=== PATIENT | male | born 1985 | race Caucasian/White ===

== ENCOUNTER 2021-08-31 02:38 | Emergency (ER) | payer BC ==
[~2021-08-31] VITALS: Ht 175.3 cm; Wt 74.8 kg
[2021-08-31] MEDS ORDERED: AZIT250T PO (03:16)
--- NOTE | 2021-08-31 03:18 | NUR ---
COVID SWAB DONE AND SENT TO LAB
--- NOTE | 2021-08-31 03:21 | NUR ---
Patient discharged to home in stable condition. Written and verbal after care instructions given. Patient verbalizes understanding of instruction.
[2021-08-31 03:22] VITALS: BP 126/78
== END 2021-08-31 03:23 | disposition home or self-care (01) ==
LOC: ER 02:42
DX: J06.9 Acute upper respiratory infection, unspecified (principal); Z20.822 Contact with and (suspected) exposure to COVID-19
CPT/HCPCS: 99283; C9803; U0003